=== PATIENT | female | born 1955 | race Caucasian/White ===

== ENCOUNTER 2017-04-27 17:53 | Inpatient (IN) | payer BC ==
[~2017-04-27] VITALS: Ht 167.6 cm; Wt 163.4 kg
--- NOTE | ~2017-04-27 | IDS ---
Interim Discharge Summary [facility] [address] [place]. [address] NAME: FENG TRAN : 53 STATUS : ADM IN [facility]#: [id number] AGE: 61 ADM/REG DATE : 04/27/17 MR#: [id number] REPORT SERV DATE: 05/05/17 DICTATED BY: BRAYDEN HULL DATE: 05/04/17 REPORT STATUS : Draft TRANSCRIBED BY: MODL DATE: 05/04/17 ADMISSION DATE: 04/27/2017 DISCHARGE DATE: REASON FOR ADMISSION: Transfer from [facility] for [facility]. INTERIM DISCHARGE DIAGNOSES: 1. Acute exacerbation of chronic systolic and diastolic heart failure. 2. Coronary artery disease, multivessel. 3. History of hepatitis C virus. 4. Acute kidney injury on chronic kidney disease. 5. Pancytopenia likely secondary to history of liver disease. 6. Pulmonary hypertension with moderate tricuspid regurgitation. 7. Morbid obesity. 8. Hypothyroidism. 9. Diarrhea. 10.Debility. PERTINENT IMAGES AND PROCEDURES PERFORMED DURING THIS ADMISSION: Cardiac catheterization specifically left heart catheterization, performed 04/30/2017. Subtotal occlusion of the LAD, the occlusion from the origin and distally as well as some disease in the RCA with the LAD felt to be the culprit of the patient's presentation, not amendable to PCI. Transthoracic echocardiogram, 04/28/2017, summary; technically difficult study. Mild LV enlargement with severe decrease in systolic function with an estimated EF of 30%. Global hypokinesis with apical akinesis. Mild right ventricular enlargement with decreased systolic function. Mild left atrial enlargement. Dilated mitral anulus with moderate mitral valve regurgitation. No previous echo for comparison. Hepatic and portal venous Doppler ultrasound, 04/29/2017, impression; mildly enlarged portal vein likely related to some underlying portal hypertension. The portal vein is patent with normal hepatopetal flow. There is also mild enlargement of the spleen likely related to portal hypertension. Normal flow in the hepatic artery, hepatic vein, and splenic vein. Superior mesenteric vein could not be visualized. HOSPITAL COURSE: Please refer to the admitting history and physical dictated by Dr. Aguilera for full history of this patient. Briefly, the patient is a morbidly obese female, who has really received no prior medical care for cardiac disease, who presented to an outside hospital with decompensated heart failure and was transferred for further evaluation. After her stay there, it was complicated by acute kidney injury in the setting of aggressive diuresis. For her heart disease, on arrival an echocardiogram was repeated and again showed a reduced ejection fraction of 30% as well as global akinesis with also some apical akinesis concerning for an ischemic etiology. Cardiology was consulted and she was aggressively Interim Discharge Summary [place] [id number] [place]. [address] NAME: FENG TRAN : 53 STATUS : ADM IN PAT#: [id number] AGE: 61 ADM/REG DATE : 04/27/17 MR#: [id number] REPORT SERV DATE: 05/05/17 DICTATED BY: BRAYDEN HULL DATE: 05/04/17 REPORT STATUS : Draft TRANSCRIBED BY: PERFECTO DATE: 05/04/17 diuresed and then underwent cardiac catheterization. As mentioned above, this showed multivessel coronary disease, it was not amendable to PCI. Therefore, her case was discussed with the cardiovascular surgeons who also understandably felt that she was not an appropriate surgical candidate for her disease, so it was decided that she would be managed medically. Cardiology continues to follow along and continues to guide our diuresis and currently she remains on IV diuresis and has diuresed fairly well with improvement in her kidney function. This was discussed below. During her admission, she has had no chest pain or other signs of ischemic disease while admitted. For her acute kidney injury on CKD, when she was admitted to the hospital, her creatinine was found to be full 1.27, it peaked at 1.36 on the day of this dictation, is now 1.15 in the setting of aggressive diuresis. Nephrology had been consulted and followed along as well throughout her admission. For her history of HCV, GI was consulted as well and followed along with recommendations made for management of her anasarca as well. We did collect a hepatitis panel that was only positive for her history of HCV, though according to the labs that we found, she appears to have been cured from her HCV after her prior therapy. She does have a pancytopenia as well that has not required transfusion, but is felt likely due to her liver disease. The most recent event complicating this patient's stay has been the onset of profuse diarrhea. The C diff was checked and was found to be negative and it was felt that her diarrhea was very likely due to medications that have been administered including Linzess and large amounts of magnesium oxide for magnesium replacement in the setting of diuresis. Therefore, today 05/04/2017, we are holding Linzess and continuing with her Mag-Ox and given a few doses of Imodium given her negative C diff result. The patient was initially resistant to any sort of placement and said that she would prefer to go home, but required four or five people to even get up out of bed when working with physical therapy. At this time, she is amenable to being discharged to a facility, but is currently still undergoing IV diuresis. When she is optimized from a volume standpoint, the plan will be to discharge her to a facility with case management working on this. ORVILLE/PERFECTO Brayden Hull MD / [id number] CC: Brayden Hull MD
--- NOTE | ~2017-04-27 | CN ---
Consultation Report [facility] [address] [place]. [address] NAME: FENG TRAN : 53 STATUS : ADM IN PAT#: [id number] AGE: 61 ADM/REG DATE : 04/27/17 MR#: [id number] REPORT SERV DATE: 04/28/17 DICTATED BY: EMILY FORD DATE: 04/28/17 REPORT STATUS : Draft TRANSCRIBED BY: MODL DATE: 04/28/17 CARDIOLOGY CONSULT DATE OF CONSULTATION: REFERRING PHYSICIAN: Dr. Aguilera. REFERRING REASON: Heart failure. 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 I have reviewed available medical records from [facility] and discussed situation with the patient. The patient has been admitted to outside hospital on 04/17/2017 for progressive failure to thrive, shortness of breath, and worsening lower extremity edema despite outpatient diuretics. The patient has morbid obesity and reportedly gained since January weight from 330 pounds to 440 pounds. She has chronic debility and was having difficulties ambulating after the right femoral fracture in 01/2016. She reportedly had DVT in 10/2016 and has been on anticoagulation for a while. She has been mostly wheelchair bound. The patient has chronic lower extremity edema and dyspnea which has been worsening over the last couple of months. She denied any chest pain, syncope, or palpitations. Of note, the patient has been diagnosed with hepatitis C in the and underwent some therapy and has been at that time followed by Dr. Rojas. She has not seen anybody while she felt that she has been cured. She also denies having primary care physician. She has diabetes mellitus, but she was on diet. The patient denied any cardiac problems before. She was found to have fluid overload in outside hospital and was diuresed, but it was challenging due to her acute kidney injury also. She has been evaluated by Dr. Emmanuel in Cardiology in [place], who has been following her since the admission. He suggested coronary arteriogram after she was found to have cardiomyopathy of unknown etiology with EF of 25% to 30% with RV enlargement and RVSP of 56 mmHg and likely global hypokinesis. However, this was postponed due to the thrombocytopenia and renal insufficiency. The patient got inpatient and requested transfer. She has been diuresed, but reportedly she has not tolerated cardiac medications due to the hypotension and some renal insufficiency. She denies any bleeding, but has multiple bruises on upper extremities. She was found to have a pancytopenia with white blood cell count in 2800 and platelet [place] 60,000 to [address], and hemoglobin around 9.3. INR is also elevated at 1.5. These numbers are improving on transfer. The patient denies any recent chest pain. She is able to sit or lay almost flat without any shortness of breath. She denies palpitations. She has some chronic lower extremity edema. She has not seen a story writer before. The rest of review of systems is negative. PAST MEDICAL HISTORY: 1. Morbid obesity with BMI 69. 2. Poor mobility since right femur fracture in 01/2016. 3. History of DVT six months ago. Consultation Report [address] [place]. [address] NAME: FENG TRAN : 53 STATUS : ADM IN [facility]#: [id number] AGE: 61 ADM/REG DATE : 04/27/17 MR#: [id number] REPORT SERV DATE: 04/28/17 DICTATED BY: EMILY FORD DATE: 04/28/17 REPORT STATUS : Draft TRANSCRIBED BY: PERFECTO DATE: 04/28/17 4. Hypothyroidism. 5. Chronic lower extremity edema, multifactor etiology. 6. Diabetes mellitus. 7. Hepatitis C, treated in the , likely now with cirrhosis. 8. Hypoalbuminism. 9. hypothyroidism. ALLERGIES: CODEINE, SULFA, AND KEFLEX. SOCIAL HISTORY: The patient is single. She lives alone. She is now ambulating with walker and wheelchair. She quit smoking in 1981 and smoked for about twenty years. She denies drinking alcohol or using street drugs. 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 FAMILY HISTORY: Negative for sudden cardiac , premature coronary artery disease in the family. HOME MEDICATIONS: Prior admission to [facility], Lasix 40 mg and potassium supplement. On transfer today, she is getting Bumex IV, lactulose, Synthroid, and Zofran. Reportedly, her cardiac medications were discontinued at the time of transfer. PHYSICAL EXAMINATION: GENERAL: No acute distress. Morbidly obese, pleasant female. VITAL SIGNS: Blood pressure 138/64, heart rate 64 regular. HEENT: Pupils reactive to light and accommodation. Moist mucosa membrane. NECK: No JVD. Normal carotid upstroke. No carotid bruits. LUNGS: Decreased breath sounds, but no crackles. There are bruises in the upper extremities with some bandages. COR: Normal S1, S2. No S3 or S4. No significant rub or murmurs. ABDOMEN: Morbidly obese, distended, nontender. EXT: Lower extremity, 2+ edema up to the knee. Chronic pitting edema with some cross of chronic skin changes in the shins bilaterally and decreased pedal pulses bilaterally. SKIN: Warm with normal turgor. MS: No kyphosis. NEURO/PSY: Alert and oriented. Nonfocal. DATA: CBC, now hemoglobin 9.8, platelet count improved to 100,000 with white blood cell count 3300. INR 1.5. BNP is 1914. BUN 43, creatinine improved from 1.6 to 1.2. TSH is 6.6. Albumin 2.7. Electrocardiogram was in normal sinus rhythm in outside institution. Here, she remains in normal sinus rhythm. Here on admission, sinus rhythm 69 beats per minute with poor R-wave progression in anterior leads, nonspecific T-wave changes relatively low voltage, possible anterolateral AZ. Chest x-ray is pending. ASSESSMENT AND PLAN: 1. Respiratory failure of multifactorial etiology. 2. Reported history of severe pulmonary hypertension, possibly secondary. Consultation Report [address] [place]. [address] NAME: FENG TRAN : 53 STATUS : ADM IN [facility]#: [id number] AGE: 61 ADM/REG DATE : 04/27/17 MR#: [id number] REPORT SERV DATE: 04/28/17 DICTATED BY: EMILY FORD DATE: 04/28/17 REPORT STATUS : Draft TRANSCRIBED BY: MODL DATE: 04/28/17 3. Acute on chronic heart failure. 4. Cardiomyopathy of unclear etiology. 5. Obesity hypoventilation syndrome. 6. Hypothyroidism. 7. Pancytopenia with history of hepatitis C and now likely cirrhosis. 8. Recent acute kidney injury. The patient has some multiple medical problems. I tried to explain to her that it will take a long time to go step by step to let her feel better and evaluate for her several significant medical issues. We will focus on cardiac workup. I will ask the Nephrology colleagues to see her and when it will be safe from Nephrology standpoint, we will proceed with coronary arteriogram to determine the etiology of her cardiomyopathy. She will require left and right heart cath, which may also help us to determine etiology of her pulmonary hypertension. She will continue gently diuresis and we will put on fluid restriction and strict I and O and started on low dose of carvedilol. We will also repeat echocardiogram. Her pancytopenia will need to be worked up likely by backend tester or paver layer. We will follow the patient with you. OJL/MODL Emily Ford M.D. / [id number] CC: Brayden Grace MD
--- NOTE | ~2017-04-27 | HP ---
History And Physical [place] [id number] [facility] [place]. [address] NAME: FENG TRAN : 53 STATUS : ADM IN PAT#: [id number] AGE: 61 ADM/REG DATE : 04/27/17 MR#: [id number] REPORT SERV DATE: 04/28/17 DICTATED BY: DAGO AGUILERA DATE: 04/27/17 REPORT STATUS : Draft TRANSCRIBED BY: MODL DATE: 04/27/17 DATE OF ADMISSION: 04/27/2017 IDENTIFYING DATA: A 61-year-old white female, who has no real PCP, but she has been talking to her friend who is an emergency room physician in [place], [place] and that is Krissy Schreiber. Initially, the patient listed that doctor as her PCP but later told me she has not seen a PCP in years that Krissy Schreiber is just her friend as she does talk to her occasionally. CHIEF COMPLAINT: Transfer from [facility] for liver and heart problems. HISTORY OF PRESENT ILLNESS: History of present illness is obtained after a phone call I received from a hospitalist at [facility]. He reported to me that the patient was admitted up there with new congestive heart failure, received diuresis, which helped her congestive heart failure, but she then had acute kidney injury. They backed off her diuretic and then her edema got worse and she want to be transferred down here. Her ejection fraction was reported as 25% at their facility. The patient states that she has started to develop edema in her legs back in January and gotten her friend who ordered some Lasix two weeks before her hospitalization 04/17/2017 at [facility]. She states she has really never had significant leg edema in the past, however, she has chronic venous stasis discoloration on her legs suggesting that she has had some degree of chronic edema in the past. The records they sent from [facility] include many individual progress notes. I do not find the original echo. I find some references to the echo. I find a few recent labs. No EKGs. I see that they have had her on Rocephin and currently they have her on cefepime, but I do not see any explanation of why they have her on that. She was diagnosed with hypothyroidism during that time at [facility] and they started on low-dose levothyroxine. The patient denies any prior history of heart problems that she knows of whatsoever. REVIEW OF SYSTEMS: She has had a Mendoza catheter placed at the time of going to the [facility] and it has been there ever since. She states she has been out of bed one time in the past 10 days. She has a little shortness of breath right now. She states she had some vomiting earlier today. No red or black color in it. She denies fever, chest pain, abdominal pain, diarrhea, bright red blood per rectum, melena. PAST MEDICAL HISTORY: She claims allergies to codeine, sulfa, and Keflex, but she is on cefepime now and was on Rocephin before that at [facility]. It looks like from their notes. She denies any history of asthma, COPD, myocardial infarction, congestive heart failure, stroke, seizure, peptic ulcer, biliary tract disease, chronic kidney disease, kidney stones, cancer or any testing for sleep apnea. History And Physical [address] [address] NAME: FENG TRAN : 53 STATUS : ADM IN [facility]#: [id number] AGE: 61 ADM/REG DATE : 04/27/17 MR#: [id number] REPORT SERV DATE: 04/28/17 DICTATED BY: DAGO AGUILERA DATE: 04/27/17 REPORT STATUS : Draft TRANSCRIBED BY: PERFECTO DATE: 04/27/17 She states she had a fall in 01/2016, had a femur fracture, taken care of at [facility]. She states it did not heal well so she went to [place] in 07/2016 and had to have a blayne and grafts. Post fracture, she had a DVT in her right leg in 10/2016 and she took Pradaxa for a while. She has had diabetes mellitus for 20 years, but states her A1c was 5.5, and on no medications. She has a history of hepatitis C. She previously took interferon and ribavirin. Then, she took Harvoni. She states she finished her Harvoni about [address] Villela. She had previous abdominal wall cellulitis in 2000 and she has morbid obesity. HOME MEDICATIONS: She states was only Lasix, nothing else. PAST SURGICAL HISTORY: She had the right leg femur fracture repair twice. She has had hysterectomy, tonsillectomy. She has had left great toe amputated after trauma and it did not heal "because of my diabetes". SOCIAL HISTORY: She quit smoking cigarettes in 1981. She states she rarely uses alcohol. She lives alone. She states prior to this hospitalization at [facility] on 04/17/2017, she could walk maybe 80 feet with a walker, longer distance, she used a wheelchair. 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 FAMILY HISTORY: Mother had lung cancer. Dad had pulmonary embolism. One sibling had esophageal cancer. DIAGNOSTIC DATA: Echocardiogram report, 04/17/2017, referred to in several progress notes at [facility] showing normal left ventricular wall thickness. Left ventricular ejection fraction 25-30%. Stage II diastolic dysfunction. Moderate enlargement of the right ventricle. Had [id number] tricuspid regurgitation with pulmonary artery pressure 56. CBC on 04/26/2017, white count 2.8, hemoglobin 9.5, platelets 80,000. Sodium 138, potassium 4.3, chloride 102, CO2 is 32, BUN 42, creatinine 1.10. INR 1.17. Ammonia level of 73 with albumin 2.6. EKG done at [facility] on 04/27/2017 reveals normal sinus rhythm, low voltage, very poor R waves throughout the entire precordium. PHYSICAL EXAMINATION: VITAL SIGNS: Temperature 97.3, pulse 67, respirations 16, blood pressure 135/70, O2 saturation 100% on 2 L. BMI 69.5. GENERAL: A well-developed, obese female, who appears at the moment, in no acute distress. HEENT: Head is atraumatic. Pupils are equal, round, and reactive to light. Extraocular motions are intact. No scleral icterus noted. Ears, externally unremarkable. No inflammatory changes noted. Nose, noninflamed externally. Septum midline. Nares patent. Mouth is moist. Good gag. No redness of the throat, gums, or lips. NECK: Supple. No lymph node or thyroid enlargement. The carotids have good pulses. No bruits. LUNGS: Shallow inspiratory size that appears to be limited by her obese abdomen. She does not appear uncomfortable in her respiratory pattern. HEART: Regular rate and rhythm without murmur, gallop, click, or rub. ABDOMEN: Extremely obese. She has significant abdominal wall edema, goes all the way up to her scapula on both sides. There is no abdominal tenderness to palpation. No bruits. EXTREMITIES: Reveal edema that is hard and woody on the feet and calves and thighs History And Physical [address] [place]. [address] NAME: FENG TRAN : 53 STATUS : ADM IN [facility]#: [id number] AGE: 61 ADM/REG DATE : 04/27/17 MR#: [id number] REPORT SERV DATE: 04/28/17 DICTATED BY: DAGO AGUILERA DATE: 04/27/17 REPORT STATUS : Draft TRANSCRIBED BY: MODL DATE: 04/27/17 bilaterally. There is evidence of previous amputation of the left great toe with good healing. No clubbing. No cyanosis. NEUROLOGIC: Alert, oriented, cooperative with grossly normal mentation and speech. Her motor strength in her hands is 3/5 and her legs appears to be 2/5. No Babinski on the right foot. No great toe on the left foot. No clonus. Cranial nerves 2 through 12 grossly normal. ASSESSMENT: 1. Recent diagnosisof acute systolic and diastolic congestive heart failure with a left ventricular ejection fraction of 25-30%. 2. Significant pulmonary hypertension with PA pressure of 56 and [id number] tricuspid regurgitation. 3. Anasarca that is probably due to problem #1 and may be aggravated by her liver dysfunction. 4. Acute kidney injury, probably related to intravascular volume depletion. 5. Pancytopenia probably due to her chronic liver disease. 6. History of hepatitis C, treated in the past with interferon, ribavirin, and then Harvoni. I do not have any imaging to see what her liver looks like structurally, see if she has cirrhotic changes. 7. Morbid obesity with BMI 69.5. 8. See past medical history. PLAN: She was transferred here because she wanted another GI and Cardiology opinion. We will ask GI and family court justice see her. We are going to ask [facility] for any culture results to see why they have her on IV antibiotics. We will check procalcitonin. We will ask Physical Therapy to get involved. We will try that Mendoza catheter out. We will try a combination of diuresis with albumin and Bumex. MARGRET/PERFECTO Dago Aguilera M.D. / [id number] CC: Miky Crockett M.D.
--- NOTE | ~2017-04-27 | DS ---
Discharge Summary [address] [place]. [address] NAME: FENG TRAN : 53 STATUS : DIS IN PAT#: [id number] AGE: 62 ADM/REG DATE : 04/27/17 MR#: [id number] REPORT SERV DATE: 05/13/17 DICTATED BY: TOMER MOSLEY DATE: 05/12/17 REPORT STATUS : Draft TRANSCRIBED BY: MODL DATE: 05/12/17 ADMISSION DATE: 04/27/2017 DISCHARGE DATE: 05/12/2017 DISCHARGE DIAGNOSES: Includes: 1. Acute on chronic systolic and diastolic heart failure, new onset. 2. Ischemic cardiomyopathy, ejection fraction 30%. 3. Multivessel coronary artery disease. 4. Anasarca that is severe. 5. Morbid obesity. 6. Hypothyroidism. 7. Functional quadriplegia. 8. Acute kidney injury, resolved. 9. Pulmonary hypertension. 10.Pancytopenia with history of liver disease. 11.History of hepatitis C. DISCHARGE MEDICINES: Are as follows, aspirin 81 mg daily, Bumex 1 mg twice a day, Coreg 6.25 mg p.o. twice a day, level 1 sliding scale NovoLog insulin a.c. and h.s., Synthroid 50 mcg daily, lisinopril 2.5 mg daily, Pravachol 40 mg at bedtime, Aldactone 50 mg daily, Mylanta 30 mL p.r.n., Dulcolax 50 mg daily p.r.n. for constipation, hypoglycemia protocol, Imodium 2 mg p.r.n., nitroglycerin 0.4 mg sublingual tablets p.r.n. for chest pain x3 doses, Zofran 4 mg every four hours p.r.n. for nausea, and potassium sustained release tablet 20 mEq daily. HISTORY OF PRESENT ILLNESS: This is a 61-year-old white female, who was a direct admission transfer from [facility]. Please see initial H and P of Dr. Chele Aguilera, as the patient is admitted to the Hospitalist Service for further evaluation and treatment. Please also see interim discharge summaries of Dr. Brayden Grace and Dr. Pool Peña, as this discharge summary will cover today's date of 05/12/2017. CONTINUATION IN HOSPITAL COURSE: The patient had been hesitant about transfer to group home facility, but had eventually been convinced with further discussions with Case Management, Dr. Pool Peña and myself, and she was approved for [facility]. In review of her medication therapy and most recent lab work, I did add a low-dose NINOSKA inhibitor to her overall regimen and have instructed her the need to recheck her TSH in approximately four weeks if Synthroid had been started upon this admission. She needs to establish a primary care HANNAH, and has been instructed to do this, and she is in agreement. She needs to keep her followups with [facility], and she was safe for discharge to [facility] today. Questions were answered at bedside extensively. Please note greater than 30 minutes was spent on this discharge for medical review, medication teaching, followup planning, further disposition. SALBADOR/PERFECTO Discharge Summary [address] [address] NAME: FENG TRAN : 53 STATUS : DIS IN PAT#: [id number] AGE: 62 ADM/REG DATE : 04/27/17 MR#: [id number] REPORT SERV DATE: 05/13/17 DICTATED BY: TOMER MOSLEY DATE: 05/12/17 REPORT STATUS : Draft TRANSCRIBED BY: PERFECTO DATE: 05/12/17 Kwadwo Tena, LIZZY Tomer Mosley MD / [id number] CC: Tomer Mosley MD
--- NOTE | ~2017-04-27 | IDS ---
Interim Discharge Summary [facility] [address] [place]. [address] NAME: FENG TRAN : 53 STATUS : ADM IN PAT#: [id number] AGE: 62 ADM/REG DATE : 04/27/17 MR#: [id number] REPORT SERV DATE: 05/12/17 DICTATED BY: CATHY JI DATE: 05/11/17 REPORT STATUS : Draft TRANSCRIBED BY: MODL DATE: 05/11/17 ADMISSION DATE: 04/27/2017 DISCHARGE DATE: Please see history and physical dictated on 04/28/[address] Aguilera as well as cardiology consultation by Dr. Ashley on 04/28/2017 as well as nephrology consult on 04/28/2017 as well as gastroenterology consult 04/29/2017 as well as cardiothoracic surgery consult on 04/30/2017 as well as interim discharge summary on 05/05/[address] Grace. INTERIM DISCHARGE DIAGNOSES: 1. Acute exacerbation of new-onset heart failure with reduced ejection fraction both systolic and diastolic. 2. Multivessel coronary artery disease. 3. Anasarca. 4. Class 3 morbid obesity. 5. Functional quadriparesis. 6. Acute kidney injury on chronic kidney disease. 7. Pancytopenia with history of liver disease. 8. History of hepatitis C. 9. Pulmonary hypertension with moderate tricuspid regurg. IMAGING REPORTS: 1. Echocardiogram on 04/28/2017 demonstrated a difficult study with left ventricular enlargement and severely depressed systolic function with an ejection fraction of 30% and global hypokinesis with apical akinesis as well as moderate mitral regurgitation. 2. Cardiac catheterization on 04/30/2017 demonstrated subtotal occlusion of LAD not amenable to PCI. 3. Right upper quadrant Doppler ultrasound, mildly enlarged portal vein with underlying portal hypertension as well as mild splenomegaly and normal flow of the hepatic artery and hepatic veins. BRIEF HOSPITAL COURSE: Ms. Trna presented with new-onset decompensated heart failure with reduced ejection fraction, acute kidney injury, and anasarca requiring pressor diuresis. She was noted on cardiac catheterization to have multivessel disease. Cardiovascular surgeons evaluated her, did not feel that she was an appropriate surgical candidate. She was diuresed with IV Bumex, placed on Coreg and spironolactone. Jerry inhibitor was held due to her kidney injury. She has, over the last several days, been at [facility] and made attempts to find placement for her for rehabilitation. She has repeatedly stated that she wants to go home; however, she was unable to lift herself up in bed requiring often four people to help her sit at the side of the bed. She in fact wanted to keep her Mendoza in because she realized that she could not use the bathroom on her own and did not want to wear a diaper if she had to use the restroom. Her Mendoza was discontinued following aggressive diuresis. I have talked to her extensively about the risks of going home and that we do not feel that this is a safe discharge, as she has no way to help herself even in her urgency. After much debate, [facility], where pending full insurance approval at this time; however, when this is received, she should be ready for discharge. Interim Discharge Summary [facility] [address] [place]. [address] NAME: FENG TRAN : 53 STATUS : ADM IN [facility]#: [id number] AGE: 62 ADM/REG DATE : 04/27/17 MR#: [id number] REPORT SERV DATE: 05/12/17 DICTATED BY: CATHY JI DATE: 05/11/17 REPORT STATUS : Draft TRANSCRIBED BY: PERFECTO DATE: 05/11/17 ANJUM/PERFCETO KEYLA JI / [id number] CC: KEYLA JI
--- NOTE | ~2017-04-27 | CN ---
Consultation Report [facility] [address] [facility] [address] [place]. [address] NAME: FENG TRAN : 53 STATUS : ADM IN [facility]#: [id number] AGE: 61 ADM/REG DATE : 04/27/17 MR#: [id number] REPORT SERV DATE: 04/28/17 DICTATED BY: DATE: REPORT STATUS : Draft TRANSCRIBED BY: MODL DATE: 04/28/17 CONSULTATION REPORT DATE OF CONSULTATION: REASON FOR CONSULTATION: Acute kidney injury, volume overload, and possible chronic kidney disease. HISTORY OF PRESENT ILLNESS: This is a fairly pleasant, 61-year-old female patient, who was initially evaluated at [facility] in [place], [place]. She is known to have no real primary care followup and she has a friend who apparently is an emergency room physician in [place], [place]. She has apparently not seen a primary care physician in multiple years and is known after evaluation in [place] at [facility] to have a 25% ejection fraction with elevated pulmonary pressures. She is historically morbidly obese and has some level of difficulty with liver disease. We were asked to evaluate the patient with an elevated creatinine with baseline previous to this admission unknown through recent laboratories, however, she does have a creatinine historically in 2010 of sub 1.0. Creatinine today is at 1.27. We were asked to evaluate the patient as above by Dr. Ashley for elevated creatinine with needed assistance for diuresis and volume overload. The patient is awake and alert. She is completing an echocardiogram and is somewhat tearful in reaction to current medications use during the procedure, but otherwise, is in no acute distress. Denies current chest pain, nausea, vomiting, or diarrhea. PAST MEDICAL HISTORY: Positive for recent diagnosis of congestive heart failure with ejection fraction noted at 25% with elevated pulmonary pressures, history is also positive for recent diagnosis of acute kidney injury with unknown previous baseline with sparse medical followup, morbid obesity, elevated pulmonary pressures on echocardiogram, diabetes mellitus, elevated ammonia levels, hypertension, debility, and hepatitis C. REVIEW OF SYSTEMS: Completed. Please see HPI for pertinent details. SOCIAL HISTORY: Lives in the [place], [place] area. No evidence of chronic drug use or alcohol abuse. Does not chronically use nonsteroidal medications. Previous tobacco user remotely in 1981. HOME MEDICATIONS: Include Lasix and nothing else on admission. ALLERGIES: SHE DOES HOWEVER INTERESTINGLY HAVE AN ALLERGY TO SULFA, CEPHALEXIN, AND CODEINE. PAST SURGICAL HISTORY: Includes femur fracture repaired twice, hysterectomy, tonsillectomy, left great toe amputation after trauma with apparently poor course of healing post due to her diabetes. Consultation Report [place] [address] [place]. [id number] NAME: FENG TRAN : 53 STATUS : ADM IN PAT#: [id number] AGE: 61 ADM/REG DATE : 04/27/17 MR#: [id number] REPORT SERV DATE: 04/28/17 DICTATED BY: DATE: REPORT STATUS : Draft TRANSCRIBED BY: MODL DATE: 04/28/17 FAMILY HISTORY: Noncontributory, not reviewed during this evaluation and consultation. PHYSICAL EXAMINATION: VITAL SIGNS: Blood pressure 155/75, temperature 96.8, respiratory rate 20, and heart rate 64 beats per minute and regular. She is 96% on 2 liters. GENERAL: She is a morbidly obese, female patient, lying in bed during evaluation in no acute distress. HEENT: Normocephalic and atraumatic. Normal ocular movements. No scleral icterus. No conjunctival pallor is appreciated. NECK: Supple without thyromegaly. No JVD or mass. CHEST: Shows positive S1 and S2. No rubs. No gallops. LUNGS: Diminished throughout. Normal expansion and effort bilaterally. No rhonchi or wheezes are appreciated on auscultation. GI: Shows a rounded, obese, firm abdomen with some level of ascites on assessment with marked firmness to palpation without overt tenderness or mass. : Deferred. She does have a Mendoza catheter to bedside drainage. NEUROLOGIC: She appears to be grossly intact and nonfocal. SKIN: Warm, dry, and intact to visualized surfaces. No rash, lesions, or ecchymosis. There does not appear to be any wounds to the examined surface, however, she is rather large and has multiple folds that are not examined and she is not examined on her bottom or back during evaluation. PSYCHIATRIC: She appears to be of appropriate mood and affect. EXTREMITIES: Show 2 to 3+ lower extremity bilateral edema and would be defined as brawny. Upper extremities show positive pulses bilaterally. No edema is appreciated on examination. LABORATORY DATA: Pertinent laboratories and imaging to this evaluation are as follows: Ammonia level 68. BNP 1914.5. Hemoglobin A1c 5.7. Portable chest x-ray, enlarged cardiac silhouette, pulmonary vascular prominence accentuated by shallow inspiration. Comprehensive metabolic panel: Procalcitonin 0.46, sodium 139, potassium 4.4, chloride 103, CO2 of 43, creatinine 1.27, reflected GFR 45 mL/minute, calcium at 9.0. Albumin 2.7, total bilirubin of 1.3. ALT and AST are 13 and 27 respectively. Iron 43, iron binding capacity 324, ferritin 45. TSH 6.610. Most recent CBC; white blood cell count of 3.3, hemoglobin 9.8, hematocrit 32.8, and platelets at 100. Urinalysis is unavailable at point of dictation for commentary. IMPRESSION AND PLAN: This is a morbidly obese, 61-year-old female patient, who presents to [facility] with transition of care from [facility] in [place]. She has had sparse medical followup and did exhibit a sub 1.0 creatinine in 2009. She does have an elevated ammonia and possible cirrhotic changes to her liver and has a known history of hepatitis C. She does appear on examination to possibly have some level of ascites in her abdominal area. She does have a large amount of bilateral lower extremity edema. Urinalysis is unavailable at time of evaluation and it is difficult to discern if this is purely related to her elevated pulmonary pressures and decreased ejection fraction or if it may also have some relation to nephrotic syndrome. She does have diabetes, but appears to be reasonably well controlled based of her hemoglobin A1c. We will provide assistance with Consultation Report [address] [place]. [address] NAME: FENG TRAN : 53 STATUS : ADM IN PAT#: [id number] AGE: 61 ADM/REG DATE : 04/27/17 MR#: [id number] REPORT SERV DATE: 04/28/17 DICTATED BY: DATE: REPORT STATUS : Draft TRANSCRIBED BY: MODL DATE: 04/28/17 diuresis with IV Bumex 2 mg q.12 hours. Her albumin is depressed. We will also dose albumin at 12.5 mg IV q.6 x4 doses. Defer her elevated TSH to the primary team. If her procalcitonin is not elevated, then she would not benefit from evaluation regarding blood cultures or urine cultures at this point. We would defer any need for IV antibiotics or p.o. antibiotics to the primary team. In light of her elevated ammonia, she is on lactulose, but has refused dosing on a couple of different occasions. Her echocardiogram is being re-evaluated today and is currently pending. We will collect urine sodium, urine creatinine, urine urea, also check [id number] ratio, and provide diuresis as listed above. The patient will definitively need chronic follow up post this hospital stay and would benefit from following up in our [place] office, which has been advised to her today. Serial laboratories. Follow the patient closely. Restrict her fluid intake. Restrict her sodium intake. Ultrasound of her kidneys and abdomen to evaluate renal anatomy, liver anatomy, and ascites if ascites is present and would benefit the patient from removal. Further modification of treatment plan may be made based on clinical presentation of the patient, laboratory results, further consultation with renal attending. We appreciate consultation. We are glad to follow. /MODL Chuy Warren NP / [id number] CC: Brayden Grace MD
--- NOTE | ~2017-04-27 | CN ---
Consultation Report [facility] [address] [place]. [address] NAME: FENG TRAN : 53 STATUS : ADM IN PAT#: [id number] AGE: 61 ADM/REG DATE : 04/27/17 MR#: [id number] REPORT SERV DATE: 04/30/17 DICTATED BY: MAGALY LOZANO DATE: 04/30/17 REPORT STATUS : Draft TRANSCRIBED BY: MODL DATE: 04/30/17 CONSULTATION DATE OF CONSULTATION: 04/30/2017 REASON FOR CONSULTATION: Multivessel coronary artery disease. HISTORY OF PRESENT ILLNESS: This is a pleasant 61-year-old female, who has a history of morbid obesity and prior hep C cirrhosis that presented to [facility] several days ago with worsening shortness of breath, gross edema, and palpitations. She says she has gained over 100 pounds over the last 4 to 5 months. She has not been to see a medical provider since she was apparently cured of hepatitis C back in 2014. She has a friend of the family who is ER physician, and this lady has been apparently treating her for the last several years. In the emergency room at [facility], she had an elevated BNP consistent with acute onset of congestive heart failure and fluid overload. She was initially treated with diuretics but developed an acute kidney injury and asked if she could be transferred to [facility]. She did have an echocardiogram performed at [facility] on 04/17/2017 which showed left ventricular ejection fraction around 25%, stage II diastolic dysfunction with moderate enlargement of the right ventricle and moderate to severe tricuspid regurgitation with pulmonary artery pressure at 56. The patient was transferred to [facility] and evaluated by Dr. Ashley. She was taken for arteriogram today and found to have extensive disease of her LAD from the origin of the vessel to the distal LAD with extensive calcifications. There is also 40% to 50% stenosis to the left main coronary artery and a 40% to 50% stenosis to the mid left circumflex. Cardiothoracic surgery was asked to evaluate her for coronary artery bypass grafting versus medical management. Currently, the patient is recovering after arteriogram with no complaints of chest pain. She does report some mild shortness of breath at rest. PAST MEDICAL HISTORY: Morbid obesity, hepatitis C apparently cured [place] [address] Villela, cirrhosis, anasarca, congestive heart failure, questionable CKD, cellulitis, prior DVT with femoral fracture, pulmonary hypertension, tricuspid regurgitation, pancytopenia, coronary artery disease, chronically debilitated, portal hypertension, hypothyroidism, hypoalbuminism, obesity, hypoventilation syndrome. PAST SURGICAL HISTORY: Right leg femur fracture 6 months ago with development of DVT, hysterectomy, tonsillectomy, left toe amputation secondary to a diabetic ulcer. SOCIAL HISTORY: She lives alone. 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 She says that she was able to ambulate without difficulty prior to her femur fracture, now is only able to ambulate short distances with a walker. Otherwise, she is confined to a chair or bed. She is a prior smoker. Occasionally uses alcohol. FAMILY HISTORY: She has a mother with lung cancer; father with prior pulmonary emboli; and a sibling with esophageal cancer. Consultation Report [address] [place]. [address] NAME: FENG TRAN : 53 STATUS : ADM IN [facility]#: [id number] AGE: 61 ADM/REG DATE : 04/27/17 MR#: [id number] REPORT SERV DATE: 04/30/17 DICTATED BY: MAGALY LOZANO DATE: 04/30/17 REPORT STATUS : Draft TRANSCRIBED BY: PERFECTO DATE: 04/30/17 ALLERGIES: SHE REPORTS AN ALLERGY TO CODEINE, TYLENOL, KEFLEX, AND SULFA. HOME MEDICATIONS: She only reports to be taking Lasix and potassium pill. REVIEW OF SYSTEMS: A 10-point review of systems was obtained and is negative other than HPI. LABORATORY DATA: White blood cell count 4.2, hemoglobin 11.1, hematocrit 37, platelets 86. Sodium 140, potassium 4.4, chloride 103, bicarbonate 30, BUN 43, creatinine 1.4, glucose 107. Hep C was reactive, ammonia 85 and BNP of 1288. PHYSICAL EXAMINATION: VITAL SIGNS: From today, temperature 97.8, heart rate 57, blood pressure 128/60, respiratory rate 10, O2 saturation 97% on 2 L. GENERAL: Morbidly obese, female, in no acute distress. NEURO: Alert and oriented x3. Pupils are equal, round, and reactive to light and accommodation. She exhibits equal strength bilateral upper extremities and bilateral lower extremities. PSYCH: Flat affect, talkative. HEENT: Head is normocephalic and atraumatic. Sclerae clear. Nose midline with no abnormalities. Good dentition overall. Ears with no abnormalities. NECK: Supple with no thyromegaly or lymphadenopathy. LUNGS: Clear diminished bases. CARDIAC: S1-S2. No murmurs, rubs, or gallops. Carotids on auscultation with no obvious bruits. EXTREMITIES: Generalized edema with extensive brawny edema and anasarca and scaling of the bilateral lower extremities. ABDOMEN: Obese, nontender with active bowel sounds. IMAGING: Cardiac catheterization performed on 04/30/2017 showed 40% to 50% stenosis to the distal left main coronary artery with a left dominant system, subtotal proximal mid LAD occlusion, extensive calcification, 40%-50% stenosis to the mid left circumflex, which is heavily calcified. LVEDP of 34 with no significant gradient across the aortic valve. Echocardiogram on 04/28/2017 showed mild left ventricular enlargement with severe decrease in systolic function with estimated ejection fraction around 30%. Global hypokinesis with apical akinesis. Mild RV enlargement with decreased systolic function. Dilated mitral anulus with moderate mitral valve regurgitation and moderate tricuspid regurgitation. ASSESSMENT AND PLAN: This is a pleasant 61-year-old female, with multiple comorbidities who presented to the emergency room at [facility] several days ago with acute exacerbation of congestive heart failure. She was transferred to [facility] at her Consultation Report [address] [address] NAME: FENG TRAN : 53 STATUS : ADM IN [facility]#: [id number] AGE: 61 ADM/REG DATE : 04/27/17 MR#: [id number] REPORT SERV DATE: 04/30/17 DICTATED BY: MAGALY LOZANO DATE: 04/30/17 REPORT STATUS : Draft TRANSCRIBED BY: PERFECTO DATE: 04/30/17 request. She had an echocardiogram performed two days ago which showed decreased LV function with estimated ejection fraction around 30% with moderate mitral regurgitation, moderate tricuspid regurgitation, mild right ventricle enlargement with decreased systolic function. She was taken for arteriogram today and found to have extensive disease to her LAD as well as left main and circumflex which was not amenable to stenting. CT Surgery was asked to get their opinion as to whether or not this patient was surgical candidate. STS risk for her and coronary artery bypass grafting show an overall mortality of 9.9% and a morbidity mortality of 57%. This would indicate the patient is high to prohibitive risk for proceeding with coronary artery bypass grafting. However, I will discuss the plan of care with Dr. Eli and allow him to discuss this with the patient and make that decision. The patient has been updated and is agreeable to the plan. We appreciate the referral. NADIR/PERFECTO Magaly Lozano NP / [id number] CC: Brayden Grace MD
--- NOTE | ~2017-04-27 | CN ---
Consultation Report [facility] [address] [place]. [address] NAME: ANILA TRAN : 51 STATUS : ADM IN PAT#: [id number] AGE: 61 ADM/REG DATE : 04/27/17 MR#: [id number] REPORT SERV DATE: 04/29/17 DICTATED BY: PAMELA PISANO DATE: 04/28/17 REPORT STATUS : Draft TRANSCRIBED BY: MODL DATE: 04/28/17 CONSULT DATE OF CONSULTATION: REASON FOR CONSULT: Consult for anasarca, edema, cirrhosis of the liver, and morbid obesity. HISTORY OF PRESENT ILLNESS: Ms. Anila Tran was admitted prior to [facility] with complaints of gross edema, shortness of breath, and palpitations. Here, she was diuresed, but then her creatinine started going up, and she was transferred here for further care. According to the patient, she was being treated by a friend, has not seen any doctor in several months, has gained about 100 pounds of weight in the past four to five months. On 02/04/2016, the patient had a fall with a fracture of the distal end of the right femur and was in bed for several months. She was given Pradaxa as an anticoagulant and was able to start walking only in 08/2016. The patient has a history of hepatitis C and cirrhosis of the liver, was initially given interferon with ribavirin. Then, I treated her in 2014 with Harvoni, and she was completely cured of hepatitis C. I have not seen her since the Harvoni treatment was finished. Her current medication is only Lasix. She was initially evaluated in [facility], and was found to have congestive cardiac failure with an ejection fraction of about 25%, was placed on diuretics, but since the diuretics pushed up her creatinine, she was requested to be transferred here. Currently has no shortness of breath but has gross edema and anasarca. REVIEW OF SYSTEMS: The patient has a Mendoza catheter in place. States that she has been able to get out of bed to go to the bathroom. Has no nausea and no vomiting. A 10-point review of systems negative. PAST MEDICAL HISTORY: Significant for obesity, COPD, gross edema in both legs, and diabetes mellitus but claims that her hemoglobin A1c is 5.5. Her other issues are cirrhosis of the liver and hepatitis C. PAST SURGICAL HISTORY: Has had a hysterectomy, tonsillectomy, has had a right leg femur fracture, and has had her left great toe amputated because of her diabetes. SOCIAL HISTORY: She smoked cigarettes until about 1981. Does not drink any alcohol. Does not use any IV drugs. Consultation Report [facility] [id number] [place]. [address] NAME: ANILA TRAN : 51 STATUS : ADM IN [facility]#: [id number] AGE: 61 ADM/REG DATE : 04/27/17 MR#: [id number] REPORT SERV DATE: 04/29/17 DICTATED BY: PAMELA PISANO DATE: 04/28/17 REPORT STATUS : Draft TRANSCRIBED BY: PERFECTO DATE: 04/28/17 FAMILY HISTORY: Significant for mother having lung cancer, dad had pulmonary embolism, and one sibling has esophageal cancer. Echocardiography done in [facility] on 04/17/2007 shows stage II diastolic dysfunction, left ventricular ejection fraction of about 25% to 30%, moderate enlargement of the right ventricle, [id number] tricuspid regurgitation, and pulmonary artery pressure of 56. CBC on admission was white cell count of 2.8, hemoglobin is 9.5, and platelet count is 80,000. Sodium is 138, potassium is 4.3, chloride is 102, bicarb is 32, BUN is 42, and creatinine is 1.10. INR is 1.17. Ammonia level is 73. Albumin is 2.6. AST, ALT, and alkaline phosphatase are normal. INR is 1.5. PHYSICAL EXAMINATION: GENERAL: On physical examination, the patient is grossly obese, has generalized anasarca. VITAL SIGNS: Blood pressure of 130/70. Respiratory rate is 16. Her BMI is 69.7. NECK: Supple. Trachea is central. Carotids are well felt on both sides. CARDIOVASCULAR: S1 and S2 are barely heard. LUNGS: Trachea is central. Clear breath sounds are heard. ABDOMEN: Grossly edematous with anasarca, cannot feel any of the organs. SENIOR CLINICAL CONSULTANT: Higher functions. Cranial nerves and reflexes are grossly normal. IMPRESSION: 1. Acute on chronic systolic and diastolic dysfunction with congestive cardiac failure and left ventricular ejection fraction about 25%. 2. Pulmonary hypertension. 3. Anasarca with gross edema. 4. Cirrhosis of the liver with gross edema. 5. Probably mild acute renal insufficiency. 6. Pancytopenia with thrombocytopenia, probably secondary to cirrhosis. 7. History of cirrhosis which was apparently cured in 2014. 8. Morbid obesity. 9. Hypothyroidism. PLAN: Would agree to restrict fluid to about 1500 mL per day. Would diurese the patient with Bumex 2 mg IV q.12 hours and supplement with albumin 25 g IV q. 12 hours. Would also add lactulose 30 mL p.o. b.i.d. Continue Synthroid at about 50 mcg/mL. Continue Xifaxan 550 mg p.o. b.i.d. Prognosis is limited because of the multiple medical problems. We will follow the patient with you. Thank you for the consult. Consultation Report [place] [address] [place] [id number] NAME: ANILA TRAN : 51 STATUS : ADM IN [facility]#: [id number] AGE: 61 ADM/REG DATE : 04/27/17 MR#: [id number] REPORT SERV DATE: 04/29/17 DICTATED BY: PAMELA PISANO DATE: 04/28/17 REPORT STATUS : Draft TRANSCRIBED BY: MODSoila DATE: 04/28/17 XUAN/PERFECTO Pamela Pisano M.D. / [id number] CC: Brayden Grace MD
[~2017-04-27 17:53] MED LIST: LANTUS SC; RIBASPHERE600 MG PO; [UNRECOGNIZED DRUG - OTHER]
[2017-04-27] MEDS ORDERED: L40 PO (23:13)
[2017-04-27] MEDS ORDERED: KDUR20 PO (23:13)
[2017-04-28 05:27] LABS: BASOPHILS 2.4 %; BASOPHILS ABSOLUTE 0.08 10/3/uL (0.0-0.16); EOSINOPHILS 9.7 %; EOSINOPHILS ABSOLUTE 0.32 10/3/uL (0.0-0.53); IMMATURE GRANULOCYTES 0.6 %; IMMATURE GRANULOCYTES ABSOLUTE 0.02 10/3/uL (0.0-0.11); LYMPHOCYTES 22.4 %; LYMPHOCYTES ABSOLUTE 0.74 10/3/uL (0.67-4.30); MONOCYTES 13.3 %; MONOCYTES ABSOLUTE 0.44 10/3/uL (0.21-1.20); NEUTROPHILS 51.6 %; PLATELET COUNT 100 10/3/uL (150-400); RED CELL COUNT 4.03 10/6/uL (4.0-5.6); WHITE BLOOD CELLS 3.3 10/3/uL (4.5-10.5)
[2017-04-28 05:28] LABS: HEMATOCRIT 32.8 % (36.0-48.0); HEMOGLOBIN 9.8 g/dL (12.0-16.0); MANUAL DIFF NO %; MEAN CORPUS HGB CONC 29.9 g/dL (32.0-36.0); MEAN CORPUSCULAR HEMOGLOB 24.3 pg (26.0-34.0); MEAN CORPUSCULAR VOLUME 81.4 fL (80-100)
[2017-04-28 05:33] LABS: INTERNATIONAL NORMAL RATI 1.5 UNITS (-)
[2017-04-28 05:34] LABS: PARTIAL THROMBO TIME 34.6 SEC (22.5-37.2)
[2017-04-28 05:35] LABS: PROTIME (NOT ORD) 18.3 SEC (12.0-14.5)
[2017-04-28 05:50] LABS: A/G RATIO 0.7 (0.7-1.9); ALBUMIN 2.7 G/DL (3.5-5.0); CHLORIDE, SERUM 103 MMOL/L (96-112); CREATININE 1.27 MG/DL (0.55-1.02); FERRITIN 45 NG/ML (8-252); GFR AFRICAN AMERICAN 52 ML/MIN (>=60); GFR NON AFRICAN AMERICAN 45 ML/MIN (>=60); GLOBULIN 3.8 G/DL (2.5-4.1); IRON BINDING CAPACITY 304 MCG/DL (225-410); IRON, SERUM 43 MCG/DL (35-150); POTASSIUM, SERUM 4.4 MMOL/L (3.5-5.3); SGOT(AST) 27 U/L (5-40); SGPT(ALT) 13 U/L (5-65); SODIUM, SERUM 139 MMOL/L (135-148); TOTAL BILIRUBIN 1.3 MG/DL (0-1.2); TOTAL PROTEIN 6.5 G/DL (6.0-8.5)
[2017-04-28 05:52] LABS: ALKALINE PHOSPHATASE 104 U/L (45-117); BUN (BLOOD UREA NITROGEN) 43 MG/DL (6-23); CO2 (CARBON DIOXIDE) 34 MMOL/L (24-34); GLUCOSE, SERUM 133 MG/DL (60-99)
[2017-04-28 05:56] LABS: B NATRIURETIC PEPTIDE (BNP) 1914.5 PG/ML (< 100.0)
[2017-04-28 05:59] LABS: ANISOCYTOSIS 1+ (5-10/OIF) (0-5/OIF); ELLIPTOCYTES 1+ (3-10/OIF) (0-2/OIF); HYPOCHROMIA 1+ (3-10/OIF) (0-2/OIF); PLATELET ESTIMATE SLT DEC (ADEQUATE)
[2017-04-28 06:42] LABS: PROCALCITONIN 0.46 ng/mL (<0.5)
[2017-04-28 07:27] LABS: GLYCOHEMOGLOBIN (HbA1c) 5.7 % (4.7-6.1)
[2017-04-28 20:36] LABS: WBC (NOT ORDERED) (RFLEX) 0 (0-5)
[2017-04-28 20:55] LABS: ASCORBIC ACID (UR NOT ORDER) NEG (NEG); BILIRUBIN, URINE NEGATIVE (NEG); KETONE, URINE NEGATIVE (NEG); LEUKOCYTE ESTERASE(NOT OR NEG (NEG)
[2017-04-28 21:37] LABS: CREATININE RANDOM UR 19.2 MG/DL; CREATININE, URINE 19.2 MG/DL; UR PROTEIN/CREAT RATIO 1.54 (< 0.2)
[2017-04-29 06:25] LABS: BASOPHILS ABSOLUTE 0.05 10/3/uL (0.0-0.16); EOSINOPHILS 5.7 %; EOSINOPHILS ABSOLUTE 0.29 10/3/uL (0.0-0.53); HEMATOCRIT 34.6 % (36.0-48.0); HEMOGLOBIN 10.4 g/dL (12.0-16.0); IMMATURE GRANULOCYTES 0.6 %; IMMATURE GRANULOCYTES ABSOLUTE 0.03 10/3/uL (0.0-0.11); LYMPHOCYTES 10.8 %; LYMPHOCYTES ABSOLUTE 0.55 10/3/uL (0.67-4.30); MANUAL DIFF NO %; MEAN CORPUS HGB CONC 30.1 g/dL (32.0-36.0); MEAN CORPUSCULAR HEMOGLOB 24.4 pg (26.0-34.0); MEAN CORPUSCULAR VOLUME 81.2 fL (80-100); MONOCYTES 8.5 %; MONOCYTES ABSOLUTE 0.43 10/3/uL (0.21-1.20); NEUTROPHILS 73.4 %; NEUTROPHILS ABSOLUTE 3.73 10/3/uL (2.02-8.40); PLATELET COUNT 88 10/3/uL (150-400); RBC DISTRIBUTION WIDTH 20.5 % (12.0-16.0); RED CELL COUNT 4.26 10/6/uL (4.0-5.6); WHITE BLOOD CELLS 5.1 10/3/uL (4.5-10.5)
[2017-04-29 06:48] LABS: A/G RATIO 0.8 (0.7-1.9); ALKALINE PHOSPHATASE 100 U/L (45-117); BUN (BLOOD UREA NITROGEN) 42 MG/DL (6-23); CALCIUM, SERUM 9.1 MG/DL (8.5-10.4); CHLORIDE, SERUM 103 MMOL/L (96-112); CO2 (CARBON DIOXIDE) 31 MMOL/L (24-34); CREATININE 1.25 MG/DL (0.55-1.02); DIRECT BILIRUBIN 0.7 MG/DL (0.0-0.4); FREE T4 1.31 NG/DL (0.76-1.46); GFR AFRICAN AMERICAN 53 ML/MIN (>=60); GFR NON AFRICAN AMERICAN 46 ML/MIN (>=60); GLOBULIN 3.8 G/DL (2.5-4.1); GLUCOSE, SERUM 103 MG/DL (60-99); INDIRECT BILIRUBIN(NOT ORDER) 1.1 MG/DL (0.1-0.9); POTASSIUM, SERUM 4.4 MMOL/L (3.5-5.3); SGOT(AST) 29 U/L (5-40); SGPT(ALT) 14 U/L (5-65); SODIUM, SERUM 138 MMOL/L (135-148); TOTAL BILIRUBIN 1.8 MG/DL (0-1.2); TOTAL PROTEIN 6.8 G/DL (6.0-8.5)
[2017-04-29 07:02] LABS: PLATELET ESTIMATE DEC (ADEQUATE)
[2017-04-29 07:03] LABS: ANISOCYTOSIS 1+ (5-10/OIF) (0-5/OIF); HYPOCHROMIA 1+ (3-10/OIF) (0-2/OIF); MICROCYTES 1+ (5-10/OIF) (0-5/OIF); POLYCHROMASIA 1+ (2-5/OIF) (0-1/OIF)
[2017-04-29 08:36] LABS: B NATRIURETIC PEPTIDE (BNP) 1966.2 PG/ML (< 100.0)
[2017-04-29 12:05] LABS: HEPATITIS B CORE AB IGM NON-REACTIVE (NON-REAC)
[2017-04-29 13:03] LABS: HEPATITIS B SURFACE ANTIGEN NON-REACTIVE (NON-REACT)
[2017-04-29 13:32] LABS: HEPATITIS C ANTIBODY REACTIVE (NON-REACT)
[2017-04-29 13:33] LABS: HEP A ANTIBODY IGM NON-REACTIVE (NON-REACT)
[2017-04-30 05:27] LABS: INTERNATIONAL NORMAL RATI 1.5 UNITS (-)
[2017-04-30 05:48] LABS: A/G RATIO 0.8 (0.7-1.9); ALKALINE PHOSPHATASE 104 U/L (45-117); BUN (BLOOD UREA NITROGEN) 43 MG/DL (6-23); CHLORIDE, SERUM 103 MMOL/L (96-112); CHOL/HDL RATIO(NOT ORDER) 6.7 (0-5); CHOLESTEROL 100 MG/DL (< 200); CO2 (CARBON DIOXIDE) 30 MMOL/L (24-34); CREATININE 1.36 MG/DL (0.55-1.02); GFR AFRICAN AMERICAN 48 ML/MIN (>=60); GFR NON AFRICAN AMERICAN 41 ML/MIN (>=60); GLOBULIN 3.8 G/DL (2.5-4.1); GLUCOSE, SERUM 107 MG/DL (60-99); HDL CHOLESTEROL 15 MG/DL (> 49); LDL CHOLESTEROL 76 MG/DL (< 130); NON-HDL CHOLESTEROL 85 MG/DL (< 160); PHOSPHORUS, SERUM 3.2 MG/DL (2.5-4.5); POTASSIUM, SERUM 4.4 MMOL/L (3.5-5.3); SGPT(ALT) 14 U/L (5-65); SODIUM, SERUM 140 MMOL/L (135-148); TOTAL PROTEIN 6.8 G/DL (6.0-8.5); TRIGLYCERIDE 49 MG/DL (< 150)
[2017-04-30 05:49] LABS: SGOT(AST) 30 U/L (5-40); TOTAL BILIRUBIN 2.3 MG/DL (0-1.2)
[2017-04-30 09:10] LABS: BASOPHILS 1.2 %; BASOPHILS ABSOLUTE 0.05 10/3/uL (0.0-0.16); EOSINOPHILS 8.1 %; EOSINOPHILS ABSOLUTE 0.34 10/3/uL (0.0-0.53); HEMATOCRIT 36.9 % (36.0-48.0); HEMOGLOBIN 11.1 g/dL (12.0-16.0); IMMATURE GRANULOCYTES ABSOLUTE 0.04 10/3/uL (0.0-0.11); LYMPHOCYTES 17.4 %; LYMPHOCYTES ABSOLUTE 0.73 10/3/uL (0.67-4.30); MEAN CORPUS HGB CONC 30.1 g/dL (32.0-36.0); MEAN CORPUSCULAR HEMOGLOB 24.7 pg (26.0-34.0); MONOCYTES 14.8 %; MONOCYTES ABSOLUTE 0.62 10/3/uL (0.21-1.20); NEUTROPHILS 57.5 %; NEUTROPHILS ABSOLUTE 2.42 10/3/uL (2.02-8.40); PLATELET COUNT 86 10/3/uL (150-400); RBC DISTRIBUTION WIDTH 20.3 % (12.0-16.0); WHITE BLOOD CELLS 4.2 10/3/uL (4.5-10.5)
[2017-04-30 09:13] LABS: MANUAL DIFF NO %
[2017-04-30 09:32] LABS: ANISOCYTOSIS 1+ (5-10/OIF) (0-5/OIF); HYPOCHROMIA 1+ (3-10/OIF) (0-2/OIF); PLATELET ESTIMATE DEC (ADEQUATE)
[2017-05-01 04:52] LABS: BASOPHILS 1.5 %; BASOPHILS ABSOLUTE 0.05 10/3/uL (0.0-0.16); EOSINOPHILS 6.9 %; EOSINOPHILS ABSOLUTE 0.23 10/3/uL (0.0-0.53); HEMOGLOBIN 10.3 g/dL (12.0-16.0); IMMATURE GRANULOCYTES 0.6 %; IMMATURE GRANULOCYTES ABSOLUTE 0.02 10/3/uL (0.0-0.11); LYMPHOCYTES 17.7 %; LYMPHOCYTES ABSOLUTE 0.59 10/3/uL (0.67-4.30); MEAN CORPUS HGB CONC 30.3 g/dL (32.0-36.0); MEAN CORPUSCULAR HEMOGLOB 24.7 pg (26.0-34.0); MEAN CORPUSCULAR VOLUME 81.5 fL (80-100); MONOCYTES 13.8 %; MONOCYTES ABSOLUTE 0.46 10/3/uL (0.21-1.20); NEUTROPHILS 59.5 %; NEUTROPHILS ABSOLUTE 1.98 10/3/uL (2.02-8.40); PLATELET COUNT 100 10/3/uL (150-400); RBC DISTRIBUTION WIDTH 20.8 % (12.0-16.0); RED CELL COUNT 4.17 10/6/uL (4.0-5.6); WHITE BLOOD CELLS 3.3 10/3/uL (4.5-10.5)
[2017-05-01 04:53] LABS: MANUAL DIFF NO %
[2017-05-01 05:07] LABS: ALBUMIN 2.9 G/DL (3.5-5.0); BUN (BLOOD UREA NITROGEN) 42 MG/DL (6-23); CALCIUM, SERUM 9.2 MG/DL (8.5-10.4); CHLORIDE, SERUM 101 MMOL/L (96-112); CO2 (CARBON DIOXIDE) 32 MMOL/L (24-34); GFR AFRICAN AMERICAN 51 ML/MIN (>=60); GFR NON AFRICAN AMERICAN 44 ML/MIN (>=60); GLUCOSE, SERUM 108 MG/DL (60-99); PHOSPHORUS, SERUM 3.1 MG/DL (2.5-4.5); POTASSIUM, SERUM 4.2 MMOL/L (3.5-5.3); SODIUM, SERUM 140 MMOL/L (135-148)
[2017-05-01 05:14] LABS: BAND NEUTROPHILS 1 %; EOSINOPHILS 2 %; EOSINOPHILS ABSOLUTE (CALC) 0.07 10/3/uL (0.0-0.53); LYMPHOCYTES 16 %; LYMPHOCYTES ABSOLUTE (CALC) 0.53 10/3/uL (0.67-4.30); MONOCYTES 4 %; MONOCYTES ABSOLUTE (CALC) 0.13 10/3/uL (0.21-1.20); NEUTROPHILS ABSOLUTE (CALC) 2.57 10/3/uL (2.02-8.40); PLATELET ESTIMATE ADQ (ADEQUATE); SEGMENTED NEUTROPHIL (0) 77 %; TOTAL NUCLEATED CELLS 100
[2017-05-02 02:11] LABS: HCV RNA VIRAL LOAD Not Detected (NOTDET)
[2017-05-02 06:04] LABS: INTERNATIONAL NORMAL RATI 1.6 UNITS (-); PROTIME (NOT ORD) 18.8 SEC (12.0-14.5)
[2017-05-02 06:06] LABS: BASOPHILS 1.9 %; BASOPHILS ABSOLUTE 0.06 10/3/uL (0.0-0.16); EOSINOPHILS 7.2 %; EOSINOPHILS ABSOLUTE 0.23 10/3/uL (0.0-0.53); IMMATURE GRANULOCYTES 0.3 %; IMMATURE GRANULOCYTES ABSOLUTE 0.01 10/3/uL (0.0-0.11); LYMPHOCYTES 18.9 %; MEAN CORPUS HGB CONC 30.2 g/dL (32.0-36.0); MEAN CORPUSCULAR HEMOGLOB 24.6 pg (26.0-34.0); MEAN CORPUSCULAR VOLUME 81.4 fL (80-100); MONOCYTES 11.9 %; MONOCYTES ABSOLUTE 0.38 10/3/uL (0.21-1.20); NEUTROPHILS 59.8 %; PLATELET COUNT 83 10/3/uL (150-400); RBC DISTRIBUTION WIDTH 21.3 % (12.0-16.0); RED CELL COUNT 3.66 10/6/uL (4.0-5.6); WHITE BLOOD CELLS 3.2 10/3/uL (4.5-10.5)
[2017-05-02 06:08] LABS: HEMATOCRIT 29.8 % (36.0-48.0); MANUAL DIFF NO %
[2017-05-02 06:14] LABS: A/G RATIO 0.9 (0.7-1.9); ALBUMIN 2.9 G/DL (3.5-5.0); ALKALINE PHOSPHATASE 95 U/L (45-117); BUN (BLOOD UREA NITROGEN) 43 MG/DL (6-23); CHLORIDE, SERUM 101 MMOL/L (96-112); CO2 (CARBON DIOXIDE) 34 MMOL/L (24-34); CREATININE 1.28 MG/DL (0.55-1.02); GFR AFRICAN AMERICAN 52 ML/MIN (>=60); GFR NON AFRICAN AMERICAN 44 ML/MIN (>=60); GLOBULIN 3.3 G/DL (2.5-4.1); GLUCOSE, SERUM 112 MG/DL (60-99); PHOSPHORUS, SERUM 3.1 MG/DL (2.5-4.5); POTASSIUM, SERUM 4.1 MMOL/L (3.5-5.3); SGOT(AST) 25 U/L (5-40); SGPT(ALT) 14 U/L (5-65); SODIUM, SERUM 140 MMOL/L (135-148); TOTAL PROTEIN 6.2 G/DL (6.0-8.5)
[2017-05-02 06:15] LABS: TOTAL BILIRUBIN 1.6 MG/DL (0-1.2)
[2017-05-02 06:25] LABS: ANISOCYTOSIS 1+ (5-10/OIF) (0-5/OIF); PLATELET ESTIMATE DEC (ADEQUATE); POLYCHROMASIA 1+ (2-5/OIF) (0-1/OIF)
[2017-05-03 06:19] LABS: BASOPHILS 1.8 %; BASOPHILS ABSOLUTE 0.05 10/3/uL (0.0-0.16); EOSINOPHILS 9.6 %; EOSINOPHILS ABSOLUTE 0.27 10/3/uL (0.0-0.53); HEMATOCRIT 30.4 % (36.0-48.0); HEMOGLOBIN 9.3 g/dL (12.0-16.0); IMMATURE GRANULOCYTES 0.4 %; IMMATURE GRANULOCYTES ABSOLUTE 0.01 10/3/uL (0.0-0.11); LYMPHOCYTES 22.1 %; LYMPHOCYTES ABSOLUTE 0.62 10/3/uL (0.67-4.30); MANUAL DIFF NO %; MEAN CORPUS HGB CONC 30.6 g/dL (32.0-36.0); MEAN CORPUSCULAR HEMOGLOB 24.9 pg (26.0-34.0); MEAN CORPUSCULAR VOLUME 81.3 fL (80-100); MONOCYTES 11.4 %; MONOCYTES ABSOLUTE 0.32 10/3/uL (0.21-1.20); NEUTROPHILS 54.7 %; NEUTROPHILS ABSOLUTE 1.53 10/3/uL (2.02-8.40); PLATELET COUNT 84 10/3/uL (150-400); RBC DISTRIBUTION WIDTH 21.5 % (12.0-16.0); RED CELL COUNT 3.74 10/6/uL (4.0-5.6); WHITE BLOOD CELLS 2.8 10/3/uL (4.5-10.5)
[2017-05-03 06:30] LABS: ALBUMIN 2.9 G/DL (3.5-5.0); BUN (BLOOD UREA NITROGEN) 41 MG/DL (6-23); CALCIUM, SERUM 9.1 MG/DL (8.5-10.4); CHLORIDE, SERUM 101 MMOL/L (96-112); CO2 (CARBON DIOXIDE) 32 MMOL/L (24-34); CREATININE 1.29 MG/DL (0.55-1.02); GFR AFRICAN AMERICAN 51 ML/MIN (>=60); GFR NON AFRICAN AMERICAN 44 ML/MIN (>=60); GLUCOSE, SERUM 120 MG/DL (60-99); PHOSPHORUS, SERUM 3.1 MG/DL (2.5-4.5); POTASSIUM, SERUM 4.2 MMOL/L (3.5-5.3); SODIUM, SERUM 141 MMOL/L (135-148)
[2017-05-03 06:38] LABS: PLATELET ESTIMATE DEC (ADEQUATE)
[2017-05-03 06:39] LABS: ANISOCYTOSIS 1+ (5-10/OIF) (0-5/OIF); POLYCHROMASIA 1+ (2-5/OIF) (0-1/OIF)
[2017-05-04 06:02] LABS: BASOPHILS 1.6 %; BASOPHILS ABSOLUTE 0.05 10/3/uL (0.0-0.16); EOSINOPHILS 8.4 %; EOSINOPHILS ABSOLUTE 0.27 10/3/uL (0.0-0.53); HEMATOCRIT 32.5 % (36.0-48.0); HEMOGLOBIN 9.9 g/dL (12.0-16.0); LYMPHOCYTES ABSOLUTE 0.74 10/3/uL (0.67-4.30); MEAN CORPUS HGB CONC 30.5 g/dL (32.0-36.0); MEAN CORPUSCULAR HEMOGLOB 24.8 pg (26.0-34.0); MEAN CORPUSCULAR VOLUME 81.3 fL (80-100); MONOCYTES 11.2 %; MONOCYTES ABSOLUTE 0.36 10/3/uL (0.21-1.20); NEUTROPHILS 55.8 %; PLATELET COUNT 100 10/3/uL (150-400); RBC DISTRIBUTION WIDTH 21.3 % (12.0-16.0); WHITE BLOOD CELLS 3.2 10/3/uL (4.5-10.5)
[2017-05-04 06:20] LABS: BUN (BLOOD UREA NITROGEN) 42 MG/DL (6-23); CALCIUM, SERUM 9.3 MG/DL (8.5-10.4); CHLORIDE, SERUM 99 MMOL/L (96-112); CO2 (CARBON DIOXIDE) 33 MMOL/L (24-34); CREATININE 1.15 MG/DL (0.55-1.02); GFR AFRICAN AMERICAN 59 ML/MIN (>=60); GFR NON AFRICAN AMERICAN 51 ML/MIN (>=60); GLUCOSE, SERUM 107 MG/DL (60-99); POTASSIUM, SERUM 4.1 MMOL/L (3.5-5.3); SODIUM, SERUM 139 MMOL/L (135-148)
[2017-05-05 06:24] LABS: BASOPHILS 1.4 %; BASOPHILS ABSOLUTE 0.05 10/3/uL (0.0-0.16); EOSINOPHILS 9.7 %; EOSINOPHILS ABSOLUTE 0.34 10/3/uL (0.0-0.53); HEMOGLOBIN 9.5 g/dL (12.0-16.0); IMMATURE GRANULOCYTES 0.3 %; IMMATURE GRANULOCYTES ABSOLUTE 0.01 10/3/uL (0.0-0.11); LYMPHOCYTES 22.8 %; MEAN CORPUS HGB CONC 30.6 g/dL (32.0-36.0); MEAN CORPUSCULAR HEMOGLOB 24.7 pg (26.0-34.0); MEAN CORPUSCULAR VOLUME 80.5 fL (80-100); MONOCYTES ABSOLUTE 0.42 10/3/uL (0.21-1.20); NEUTROPHILS 53.8 %; NEUTROPHILS ABSOLUTE 1.89 10/3/uL (2.02-8.40); PLATELET COUNT 95 10/3/uL (150-400); RBC DISTRIBUTION WIDTH 21.5 % (12.0-16.0); RED CELL COUNT 3.85 10/6/uL (4.0-5.6); WHITE BLOOD CELLS 3.5 10/3/uL (4.5-10.5)
[2017-05-05 06:25] LABS: MANUAL DIFF NO %
[2017-05-05 06:44] LABS: ANISOCYTOSIS 1+ (5-10/OIF) (0-5/OIF); HYPOCHROMIA 1+ (3-10/OIF) (0-2/OIF); PLATELET ESTIMATE DEC (ADEQUATE)
[2017-05-05 06:45] LABS: POLYCHROMASIA 1+ (2-5/OIF) (0-1/OIF)
[2017-05-05 06:47] LABS: ALBUMIN 2.7 G/DL (3.5-5.0); BUN (BLOOD UREA NITROGEN) 43 MG/DL (6-23); CALCIUM, SERUM 9.5 MG/DL (8.5-10.4); CHLORIDE, SERUM 99 MMOL/L (96-112); CO2 (CARBON DIOXIDE) 33 MMOL/L (24-34); CREATININE 1.24 MG/DL (0.55-1.02); GFR AFRICAN AMERICAN 54 ML/MIN (>=60); GFR NON AFRICAN AMERICAN 46 ML/MIN (>=60); GLUCOSE, SERUM 106 MG/DL (60-99); PHOSPHORUS, SERUM 3.4 MG/DL (2.5-4.5); POTASSIUM, SERUM 3.9 MMOL/L (3.5-5.3); SODIUM, SERUM 139 MMOL/L (135-148)
[2017-05-06 05:52] LABS: POTASSIUM, SERUM 4.3 MMOL/L (3.5-5.3)
[2017-05-11 05:02] LABS: A/G RATIO 0.7 (0.7-1.9); ALBUMIN 2.7 G/DL (3.5-5.0); ALKALINE PHOSPHATASE 109 U/L (45-117); BASOPHILS 2.4 %; BASOPHILS ABSOLUTE 0.07 10/3/uL (0.0-0.16); BUN (BLOOD UREA NITROGEN) 47 MG/DL (6-23); CALCIUM, SERUM 9.6 MG/DL (8.5-10.4); CHLORIDE, SERUM 100 MMOL/L (96-112); CO2 (CARBON DIOXIDE) 30 MMOL/L (24-34); EOSINOPHILS 10.2 %; GFR AFRICAN AMERICAN 62 ML/MIN (>=60); GFR NON AFRICAN AMERICAN 53 ML/MIN (>=60); GLOBULIN 3.7 G/DL (2.5-4.1); GLUCOSE, SERUM 111 MG/DL (60-99); HEMATOCRIT 30.9 % (36.0-48.0); HEMOGLOBIN 9.5 g/dL (12.0-16.0); IMMATURE GRANULOCYTES 0.3 %; IMMATURE GRANULOCYTES ABSOLUTE 0.01 10/3/uL (0.0-0.11); LYMPHOCYTES 26.2 %; LYMPHOCYTES ABSOLUTE 0.77 10/3/uL (0.67-4.30); MEAN CORPUS HGB CONC 30.7 g/dL (32.0-36.0); MEAN CORPUSCULAR HEMOGLOB 24.9 pg (26.0-34.0); MEAN CORPUSCULAR VOLUME 80.9 fL (80-100); MONOCYTES 17.3 %; MONOCYTES ABSOLUTE 0.51 10/3/uL (0.21-1.20); NEUTROPHILS 43.6 %; NEUTROPHILS ABSOLUTE 1.28 10/3/uL (2.02-8.40); NUCLEATED RED BLOOD CELLS 0.8 /100WBC (0-0); PLATELET COUNT 92 10/3/uL (150-400); POTASSIUM, SERUM 4.4 MMOL/L (3.5-5.3); RBC DISTRIBUTION WIDTH 20.9 % (12.0-16.0); RED CELL COUNT 3.82 10/6/uL (4.0-5.6); SGOT(AST) 26 U/L (5-40); SGPT(ALT) 14 U/L (5-65); SODIUM, SERUM 137 MMOL/L (135-148); TOTAL BILIRUBIN 1.4 MG/DL (0-1.2); TOTAL PROTEIN 6.4 G/DL (6.0-8.5); WHITE BLOOD CELLS 2.9 10/3/uL (4.5-10.5)
[2017-05-11 05:06] LABS: MANUAL DIFF NO %
[2017-05-11 05:37] LABS: HYPOCHROMIA 1+ (3-10/OIF) (0-2/OIF); PLATELET ESTIMATE DEC (ADEQUATE)
[2017-05-11 05:38] LABS: ANISOCYTOSIS 1+ (5-10/OIF) (0-5/OIF)
== END 2017-05-12 21:56 | DRG 286 ==
LOC: ENRESERV → ENRESERVDT → ENRESERVTM → 6NO 21:56
PROVIDERS: Hospitalist; Internal Medicine; Internal Medicine Clinical Cardiac Electrophysiology; Internal Medicine Gastroenterology; Registered Nurse
PROC: 4A023N7 Measurement of Cardiac Sampling and Pressure, Left Heart, Percutaneous Approach (ICD-10-PCS; principal; 2017-04-30)
PROC: B2111ZZ Fluoroscopy of Multiple Coronary Arteries using Low Osmolar Contrast (ICD-10-PCS; 2017-04-30)
PROC: B2151ZZ Fluoroscopy of Left Heart using Low Osmolar Contrast (ICD-10-PCS; 2017-04-30)
DX: I13.0 Hypertensive heart and chronic kidney disease with heart failure and stage 1 through stage 4 chronic kidney disease, or unspecified chronic kidney disease (principal); J96.20 Acute and chronic respiratory failure, unspecified whether with hypoxia or hypercapnia; N17.9 Acute kidney failure, unspecified; R53.2 Functional quadriplegia; D61.818 Other pancytopenia; K76.6 Portal hypertension; I50.43 Acute on chronic combined systolic (congestive) and diastolic (congestive) heart failure; Z68.44 Body mass index [BMI] 60.0-69.9, adult; E66.2 Morbid (severe) obesity with alveolar hypoventilation; I27.2 Other secondary pulmonary hypertension; I25.5 Ischemic cardiomyopathy; E11.22 Type 2 diabetes mellitus with diabetic chronic kidney disease; N18.9 Chronic kidney disease, unspecified; K74.69 Other cirrhosis of liver; I25.10 Atherosclerotic heart disease of native coronary artery without angina pectoris; I07.1 Rheumatic tricuspid insufficiency; R16.1 Splenomegaly, not elsewhere classified; R60.1 Generalized edema; Z86.19 Personal history of other infectious and parasitic diseases; Z87.891 Personal history of nicotine dependence; Z88.5 Allergy status to narcotic agent; Z88.2 Allergy status to sulfonamides; Z88.1 Allergy status to other antibiotic agents; Z90.710 Acquired absence of both cervix and uterus; Z89.412 Acquired absence of left great toe; Z79.82 Long term (current) use of aspirin
CPT/HCPCS: 71010; 76700; 80053; 80061; 80069; 80074; 81001; 82105; 82140; 82248; 82272; 82570; 82728; 82962; 83036; 83540; 83550; 83735; 83880; 84132; 84145; 84156; 84300; 84439; 84443; 84481; 84540; 85025; 85610; 85730; 86376; 87449; 87493; 87493-59; 87522; 93005; 93458; 93975; 97110-GO; 97110-GP; 97163-GP; 97166-GO; 97530-GP; 97535-GO; 99152; 99153; A9270-GY; C1769; C1887; C1894; C8929; G8978-CN-GP; G8979-CL-GP; J0360; J1205; J2250; J2405; J3010; P9047; Q9957; Q9967